=== PATIENT | female | born 1960 | race Caucasian/White ===

== ENCOUNTER 2017-04-11 09:53 | Emergency (ER) | payer OTHER ==
[~2017-04-11] VITALS: Ht 165.1 cm; Wt 123.2 kg
[~2017-04-11 09:53] MED LIST: ATEN50TA7 PO; COZ100 PO; IMI50 PO; K10 PO; NOMED
[2017-04-11 10:02] VITALS: BP 156/97; PULSE 72; RESP 24; O2SAT 98
--- NOTE | 2017-04-11 10:10 | ED.REPORT ---
HPI-Headache Date of Service Apr 11, 2017 ED Provider: Brody Abdi MD The pt is a 57 y/o female w/ a hx of HTN presenting to the ED complaining of a headache onset a 10 days ago. She describes the headache as constant pressure, diffuse, 5-6/10 and nothing making it worse or better. She has not taken any medications today to help relieve the headaches. There was no trauma to initiate the headache and has not experienced any headaches as severe as this before. Denies fevers, decreases in coordination and balance, or changes in thinking or speech. She is also experiencing R facial numbness which has gotten worse as of today, nausea, dizziness, and her R arm feeling different. Nursing Notes Stated Complaint: HEADACHE FOR 1 WEEK,TINGLY TONGUE/RT SIDE FACE Chief Complaint: Headache Nursing Notes Reviewed: Yes ([employer] not reconciled) Allergies: Coded Allergies: No Known Allergies (Unverified , 09/27/13) Scheduled Atenolol-Expunged Drug, Do Not Renew! (Atenolol-Expunged Drug, Do Not Renew!) 50 Mg Tablet 25 MG PO DAILY Losartan-Expunged Drug, Do Not Renew! (Losartan-Expunged Drug, Do Not Renew!) 100 Mg Tablet 100 MG PO DAILY Potassium Chl-Expunged Drug, Do Not Renew! (K-URS-Ztqldzgo Drug, Do Not Renew!) 10 Meq Tabsr 10 MEQ PO DAILY TAKE WITH FOOD Miscellaneous Medications No Historical Medication (No Historical Medication) Ea Sumatriptan-Expunged Drug, Do Not Renew! (Imitrex-Expunged Drug, Do Not Renew!) 50 Mg Tab 50 MG PO General Time Seen by MD: 10:08 Chief Complaint Headache Hx Obtained From: Patient Arrived By: Walk-in Sudden in Onset?: Yes Onset Occurred: 1 week ago (10 days ) Symptom Duration: Since onset Recent Healthcare: No recent doctor visit, No recent hospitalization Similar Sx Previous: Yes Past Medical History Past Medical History HTN Sleep apnea Past Surgical History Reports: Cholecystectomy Smoking History Unknown if Ever Smoker Social History Other Social History: Good social support, Ambulatory Status Independent Review of Systems R facial numbness; R arm feeling "different"; Denies decreases in coordination and balance, or changes in thinking; Constitutional: Denies: Fever GI: Reports: Nausea Neurologic: Reports: Dizziness, Headache, Denies: Slurred speech, Unable to speak Complete sys rev & neg: except as marked. Physical Exam Initial Vital Signs Vital Signs (First) Date Time Temp Pulse Resp B/P Pulse Ox O2 Delivery O2 Flow Rate FiO2 04/11/17 10:02 36.7 72 24 156/97 98 Initial VS: Reviewed, Vital signs normal ENT: Mucous membranes moist, Conjunctiva normal, No scleral icterus Respiratory: Breath sounds normal, Clear to auscultation, No respiratory distress Cardiovascular: Regular rate & rhythm, Heart sounds normal, Intact distal pulses Extremities: Vascular intact, Neuro intact, No swelling, No tenderness Skin: Warm, Dry, No cyanosis Psychiatric: Mood/affect normal, Behavior normal, Normal thought content General/Constitutional: Awake, Alert NIH of 0 Head / Eyes: Normocephalic, PERRL, EOMI Neck: Atraumatic, Supple, Full range of motion Neurologic: Oriented X3, Speech NL Interpretation & Diagnostics Lab Results Interpretation Result Diagram: 04/11/17 1220 04/11/17 1220 Test 04/11/17 12:20 White Blood Count 7.3th/mm3 (3.8-10.1) Red Blood Count 4.69mil/mm3 (3.90-5.20) Hemoglobin 13.9g/dL (12.0-15.6) Hematocrit 42.4% (35.0-46.0) Mean Corpuscular Volume 90.4fL (81-100) Mean Corpuscular Hemoglobin 29.6pg (27.0-35.0) Mean Corpuscular Hemoglobin Concent 32.8% (32.0-37.0) Red Cell Distribution Width 13.4% (12.3-15.4) Platelet Count 274bil/L (150-400) Neutrophils (%) (Auto) 60.1% (40-74) Lymphocytes (%) (Auto) 28.7% (14-46) Monocytes (%) (Auto) 8.8% (4-12) Eosinophils (%) (Auto) 1.9% (0-5) Basophils (%) (Auto) 0.4% (0-3) Prothrombin Time 9.7sec (8.1-12.5) Prothromb Time International Ratio 0.91ratio Sodium Level 143mEq/L (134-144) Potassium Level 4.4mEq/L (3.5-5.2) Chloride Level 104mEq/L (97-108) Carbon Dioxide Level 25mmol/L (18-29) Blood Urea Nitrogen 10mg/dL (6-24) Creatinine 0.52mg/dL (0.57-1.00) Estimat Glomerular Filtration Rate 175mL/min (>59) Glucose Level 94mg/dL (60-99) Calcium Level 9.4mg/dL (8.5-10.1) Total Bilirubin 0.5mg/dL (0.0-1.2) Aspartate Amino Transf (AST/SGOT) 31U/L (0-50) Alanine Aminotransferase (ALT/SGPT) 38U/L (0-32) Alkaline Phosphatase 83U/L (25-150) Total Protein 7.6g/dL (6.4-8.4) Albumin 4.3g/dL (3.4-5.0) Hold Pyel Top Tube Received (Received) Lab Results Interpretation: CBC normal next and CMP normal CT Head Interpretation IMPRESSION: 1. No acute intracranial abnormalities. 2. A small hypodensity in the left basal ganglia. Differential diagnoses include dilated perivascular space versus a small lacunar infarct. Dictated by: Levy Cat M.D. on 04/11/2017 at 10:46 Approved by: Levy Cat M.D. on 04/11/2017 at 10:53 Study: Head CT no contrast Interpretation / Wet Read by: Interpret - Radiologist Re-Eval/Medical Decision Med Decision/Clinical Course This is a pleasant 57-year-old female with history of mild hypertension presents complaining of a one-week history of an atypical headache associated as well with some right-sided facial numbness that has been worsening. Due to persistence of symptoms she came in. She does have migraines, but states this headache is somewhat different. This been no fever, no trauma, no nausea, vomiting. There are no clear exacerbating or palliative features. No neck symptoms. No rashes or exanthems. Symptoms: Bit worse yesterday with increasing numbness in the right side of the face and increasingly concerned and came here. Her NIH stroke scale is 0, (she has no numbness on testing of the forehead). Her cranial nerves are intact with no gross findings of a Crabtree's palsy. As no findings of zoster. Ear exam is normal. Neck exam is normal. Her neurologic exam is normal. He did report some transient right arm symptoms as well, but these are not present in the ED and her upper extremity neurologic exam is normal. Given the accommodation atypical headache and neurologic symptoms noncontrast head CT is obtained, and was concerning for the possibility of a subacute infarct. Therefore MRI imaging is being obtained for further clarification. Blood work is normal I am not finding clinical signs of meningitis or need for lumbar puncture. There is no findings or temporal artery tenderness to suggest temporal arteritis. Source of Hx: Old records Re-Evaluation/Progress #1: Time of Eval: 11:54 Re-Evaluation/Progress Note: Rechecked pt and discussed need for IV and MRI. Re-Evaluation/Progress #2: Time of Eval: 15:07 Re-Evaluation/Progress Note: Portions of this note were transcribed by Rico Quiros. I, Dr. Abdi personally performed the history, physical exam and medical decision-making; I reviewed and confirmed the accuracy of the information in the transcribed note. Differential Diagnosis: Negative: Carbon monoxide toxicity, Carotid artery dissection, Closed head injury, Headache, post LP, Headache, post-traumatic, Hemorrhage, epidural, Hemorrhage, intracerebral, Hemorrhage, subarachnoid, Hemorrhage, subdural, Intracranial abscess, Medication reaction, Meningitis, Post-traumatic/concussion, Pseudotumor cerebri, Temporal arteritis Counseled Regarding: Diagnosis, Lab results, Need for follow-up, When/why to return to ED Discharge & Departure Impression: Primary Impression: Headache Headache type: unspecified Headache chronicity pattern: unspecified pattern Intractability: not intractable Qualified Code: R51 - Headache Additional Impression: Facial numbness Disposition: Home Discharge Condition All VS Reviewed: Yes Condition: Stable Additional Instructions: 1. A dangerous cause of the headache and facial numbness was not appreciated on MRI (the CT scan was non diagonistic). 2. Continue your Excedrin. 3. If needed for more severe discomfort you can take hydrocodone/APAP 5/325 1 tab up to every 4-6 hours for pain. NOTE: This medication does continue narcotic and causes some drowsiness. No driving for at least 4-6 hours after taking it. 4. Symptoms are expected to improve and resolve with time. 5. Follow up with your regular doctor as needed. 6. Return if new or worsening symptoms Referrals: Jocelyn Cardenas MD (PCP) Scribe Attestation Portions of this note were transcribed by Rico Quiros. I, Dr. Abdi personally performed the history, physical exam and medical decision-making; I reviewed and confirmed the accuracy of the information in the transcribed note. copies to: Jocelyn Cardenas MD, Matthew F MD Apr 11, 2017 10:09 Rico Quiros Apr 11, 2017 11:05
[2017-04-11] MEDS ORDERED: Promethazine 25 mg/mL Inj IM ONE (10:15)
--- NOTE | 2017-04-11 10:54 | DRSVH ---
PROCEDURE: CT BRAIN WITHOUT CONTRAST ([id number]) INDICATIONS: DRIVER, R facial numbness TECHNIQUE: Noncontrast 4.5 mm thick angled axial sections acquired from the foramen magnum to the vertex, with c oronal reformats. COMPARISON: None. FINDINGS: Image quality: Excellent. CSF spaces: Basal cisterns are patent. No extra-axial fluid collections. Ventricles are normal in size and shape. Brain: No midline shift. No intracranial masses or hemorrhage. Granger-white matter interface is norm al. There is a small hypodensity in the left basal ganglia, consistent with dilated perivascular spa ce or a small lacunar infarct. Skull and face: Calvarium and visualized facial bones are intact, without suspicious lesions. Hyper ostosis frontalis. Sinuses: Visualized sinuses and mastoids are clear. IMPRESSION: 1. No acute intracranial abnormalities. 2. A small hypodensity in the left basal ganglia. Differential diagnoses include dilated perivascular space versus a small lacunar infarct. Dictated by: Levy Cat M.D. on 04/11/2017 at 10:46 Approved by: Levy Cat M.D. on 04/11/2017 at 10:53
[2017-04-11 12:32] LABS: BASOPHILS % (AUTO) 0.4 % (0-3); EOSINOPHILS % (AUTO) 1.9 % (0-5); MONOCYTES % (AUTO) 8.8 % (4-12); Mean Corpuscular Hemoglobin 29.6 pg (27.0-35.0); Mean Corpuscular Volume 90.4 fL (81-100); NEUTROPHILS % (AUTO) 60.1 % (40-74); Platelet Count 274 bil/L (150-400)
[2017-04-11] MEDS ORDERED: HYDROmorphone 0.5 mg/0.5 mL iSecure Syringe IVPUSH PRN (12:40)
[2017-04-11 12:43] LABS: INR 0.91 ratio
[2017-04-11 14:01] VITALS: BP 150/93; PULSE 74; RESP 18; O2SAT 97
--- NOTE | 2017-04-11 15:16 | DRSVH ---
PROCEDURE: MRI STROKE PROTOCOL ([id number]) Pre- and post-contrast brain MRI, non-contrast brain MR angiogram, pre- and postcontrast neck MR monik ogram INDICATIONS: DRIVER, R facial numbness, abnl CT TECHNIQUE: Brain: Noncontrast axial T1 spin echo, axial T2 fast spin echo, sagittal and axial FLAIR, coronal T2 fast spin echo, axial gradient echo, axial diffusion and ADC through the brain. After the administr ation of contrast, axial 3D VIBE of the cranial vasculature and brain. Brain MRA: Non-contrast 3-D time of flight MR angiogram, with multiple zcpyboe-bortvwkip-tmgirjsmsq (MIP) reformats performed. Neck MRA: Axial and sagittal TruFISP through the neck. Coronal dynamic MR angiogram during administ ration of contrast in the arterial and venous phases, with 3-dimenstional wirzrbb-xlhcjmbon-bdeuolvhf n (MIP) reformats constructed from subtraction images. COMPARISON: [facility], CT, CT BRAIN WO CON, 04/11/2017, 10:39. FINDINGS: Image quality: Excellent. BRAIN: CSF spaces: Ventricles are normal in size and shape. Basal cisterns are patent. No extra-axial flu id collections. Brain: No intracranial bleeds or mass effects. Granger-white matter interface is normal. Diffusion we ighted images show no acute ischemic insults. Brainstem appears normal. Normal intravascular flow v oids are present. No abnormal intracranial enhancement. Skull and face: Calvarial marrow signal is normal. Orbits appear normal. Sinuses: Sinuses and mastoids are clear. BRAIN MR ANGIOGRAM: Anterior circulation: Intracranial internal carotid arteries are normal in size and enhancement. Th e flow within the paired anterior cerebral arteries is normal and symmetric. The flow within the mid dle cerebral arteries is normal and symmetric. The anterior communicating artery is seen. No stenos es, occlusions, or aneurysms. Posterior circulation: The visualized portions of the vertebral arteries demonstrate normal caliber, and join to form a normal appearing basilar artery. The flow within the posterior cerebral arteries is normal and symmetric. No stenoses, occlusions, or aneurysms. NECK MR ANGIOGRAM: Carotids: Great vessels demonstrate a conventional anatomy as they arise from the aortic arch. The origins of the common carotid arteries appear patent. The calibers and courses of both common caroti d arteries are normal. The bifurcation regions appear normal bilaterally. The internal carotid jhon marlena demonstrate normal course and caliber. Posterior circulation: The origins of the vertebral arteries appear patent. More superior portions of both vertebral arteries demonstrate normal course and caliber, and join to form a normal appearing basilar artery. Miscellaneous: Subclavian arteries appear patent. Pre-contrast images through the neck show no soft tissue abnormalities. IMPRESSION: BRAIN MRI: Normal brain MRI. The area of recent CT concern the left insular cortex appears to repres ent a mildly prominent perivascular space. BRAIN MR ANGIOGRAM: Normal intracranial MR angiogram. NECK MR ANGIOGRAM: Normal cervical MR angiogram. The estimate of stenosis included in the report of the imaging study was calculated using the NASCET method Dictated by: Morales Hassan M.D. on 04/11/2017 at 15:12 Approved by: Morales Hassan M.D. on 04/11/2017 at 15:15
[2017-04-11] MEDS ORDERED: HYDR-4003 PO (15:38)
[2017-04-11 16:04] VITALS: BP 132/76; PULSE 70; RESP 18; O2SAT 95
[2017-04-11 16:05] VITALS: BP 132/76; PULSE 70; RESP 18; O2SAT 95
== END 2017-04-11 16:06 | disposition home or self-care (01) ==
LOC: SED 09:53
DX: R51 Headache (principal); R20.2 Paresthesia of skin; I10 Essential (primary) hypertension
CPT/HCPCS: 36415; 70450; 70549; 70553; 80053; 85025; 85610; 96372; 96374; 96375; 99285; A9585; J1170; J1200; J2060; J2550